=== PATIENT | female | born 1945 | race Two or more races ===

== ENCOUNTER 2017-01-02 12:05 | Emergency (ER) | payer OTHER ==
[~2017-01-02 12:05] MED LIST: ANXIETY; DEPRESSION; IRON1 TAB PO; MED FOR SLEEP; OMEPRAZOLE40 M1 PO; THYROID MED
== END 2017-01-02 12:10 | disposition home or self-care (01) ==
LOC: CED 12:05
DX: F41.9 Anxiety disorder, unspecified (principal); F32.9 Major depressive disorder, single episode, unspecified; Z88.0 Allergy status to penicillin
CPT/HCPCS: 99283